=== PATIENT | male | born 1950 | race Caucasian/White ===

== ENCOUNTER 2020-01-30 14:45 | Emergency (ER) | payer MEDICARE, OTHER ==
[~2020-01-30] VITALS: Ht 190.5 cm; Wt 96.2 kg
[2020-01-30 14:50] VITALS: BP 161/93
[2020-01-30] MEDS ORDERED: TETANUS,DIPTH,PERTUSS P/F (BOOSTRIX) 0.5 ML VIAL IM ONE ×2 (14:59→15:15)
--- NOTE | 2020-01-30 15:03 | ED Integumentary General ---
General Chief Complaint: Laceration Stated Complaint: FOREHEAD LAC History of Present Illness Date Seen by Provider: Jan 30, 2020 Time Seen by Provider: 14:52 Initial Comments 69-year-old male presents with scalp laceration. She was working on a crank of an old tractor when a crate hit him in the top of the head. He has an approximate 3 cm laceration. He is on Plavix . Has minimal pain. No other systemic complaints. Allergies and Home Medications Allergies Coded Allergies: adhesive tape (Verified Allergy, Unknown, 01/30/20) codeine (Verified Allergy, Unknown, 01/30/20) Patient Home Medication List Home Medication List Reviewed: Yes Review of Systems Review of Systems Constitutional: no symptoms reported EENTM: no symptoms reported Respiratory: no symptoms reported Cardiovascular: no symptoms reported Genitourinary: no symptoms reported Musculoskeletal: no symptoms reported Skin: see HPI Psychiatric/Neurological: No Symptoms Reported Endocrine: No Symptoms Reported Past Kemfixi-Xoylhz-Bhcouy Hx Patient Social History Alcohol Use: Denies Use Recreational Drug Use: No Smoking Status: Never a Smoker 2nd Hand Smoke Exposure: No Recent Foreign Travel: No Contact w/Someone Who Travel: No Recent Hopitalizations: No Physical Abuse: No Sexual Abuse: No Mistreated: No Fear: No Immunizations Up To Date Tetanus Booster (TDap): More than 5yrs Seasonal Allergies Seasonal Allergies: No Past Medical History Surgeries: Yes CABG, Coronary Stent Respiratory: No Cardiac: Yes High Cholesterol Neurological: No Genitourinary: Yes Prostate Problems Gastrointestinal: No Musculoskeletal: No Endocrine: No HEENT: No Cancer: Yes Prostate Integumentary: No Physical Exam Vital Signs Vital Signs - First Documented 01/30/20 14:50 Temp 36.1 Pulse 73 Resp 16 B/P (MAP) 161/93 (115) Pulse Ox 94 O2 Delivery Room Air Capillary Refill : General Appearance: WD/WN, no apparent distress HEENT: PERRL/EOMI Neck: full range of motion, supple Cardiovascular: normal peripheral pulses Respiratory: lungs clear, normal breath sounds Gastrointestinal: non tender, soft Extremities: normal range of motion Skin: other (3 cm laceration right lateral scalp ) Skin Problem Location: scalp Procedures/Interventions Wound Location: Scalp Wound Length (cm): 3 Wound's Depth, Shape: superficial Wound Explored: clean Staple Repair: Stapler 35W, Patient Given Remover Number of Sutures: 3 Progress Patient tolerated well with no immediate consultations Progress/Results/Core Measures Results/Orders My Orders Orders - ANALILIA WEST DO Dipht,Pertuss(Acell),Tet Adult (Boostrix (01/30/20 15:15) Dipht,Pertuss(Acell),Tet Adult (Boostrix (01/30/20 14:59) Medications Given in ED Current Medications Medications Dose Ordered Sig/Evaristo Route Start Time Stop Time Status Last Admin Dose Admin Diphtheria/ Tetanus/Acell Pertussis 0.5 ml ONCE ONCE IM 01/30/20 15:15 01/30/20 15:07 DC 01/30/20 15:06 0.5 ML Vital Signs/I&O 01/30/20 14:50 Temp 36.1 Pulse 73 Resp 16 B/P (MAP) 161/93 (115) Pulse Ox 94 O2 Delivery Room Air Departure Impression Primary Impression: Laceration of scalp without complication Qualified Codes: S01.01XA - Laceration without foreign body of scalp, initial encounter Disposition: HOME, SELF-CARE Condition: Stable Departure-Patient Inst. Referrals: UNKNOWN (PCP/Family) Primary Care Physician Patient Instructions: Laceration Repair With [place] (DC) Add. Discharge Instructions: Please remove gracie in 10-14 days or return to the ER to have them removed All discharge instructions reviewed with patient and/or family. Voiced understanding. ANALILIA WEST DO Jan 30, 2020 15:03
== END 2020-01-30 15:07 | disposition home or self-care (01) ==
LOC: ER FS 14:47
DX: S01.01XA Laceration without foreign body of scalp, initial encounter (principal); Z79.02 Long term (current) use of antithrombotics/antiplatelets; Z88.8 Allergy status to other drugs, medicaments and biological substances; Z88.5 Allergy status to narcotic agent; Z95.1 Presence of aortocoronary bypass graft; Z95.5 Presence of coronary angioplasty implant and graft; Z23 Encounter for immunization; Z85.46 Personal history of malignant neoplasm of prostate; W22.8XXA Striking against or struck by other objects, initial encounter
CPT/HCPCS: 90715